=== PATIENT | male | born 1940 | race Caucasian/White ===

== ENCOUNTER 2016-12-06 14:59 | Emergency (ER) | payer MEDICARE, BC ==
[~2016-12-06 14:59] MED LIST: *UNABLE3; AMB10 PO; ASAB PO; ATIVAN; ATIVAN2 MG PO; ATV1 PEG; BAC; CITRUCEL500 MG PO; CITRUCELSF PO; CRESTOR20 MG PO; DUONEB INH; DURA25 TOP; FLONASE NAS; K250 PO; KDUR20 PO; KLOR-CON M2020 MEQ PO; L40 PEG; L40 PO; LEVAQUIN750 MG PO; MELATONIN5 M1 PEG; METPAKSF PEG; MIRALAXPKT PEG; NORV10 PEG; NORV10 PO; PROTONI1 PEG; PROZAC PEG; PROZAC PO; REG5 PEG; T PEG; THERGRANM PEG; VITAMIN D1000 UNI1 PEG; VITAMIN D1000 UNI1 PO; ZOFRAN4 PEG; ZOL50 PO
[2016-12-06 16:06] LABS: BASOPHILS 0.1 %; BASOPHILS ABSOLUTE 0.02 10/3/uL (0.0-0.16); EOSINOPHILS 0.1 %; EOSINOPHILS ABSOLUTE 0.01 10/3/uL (0.0-0.53); HEMOGLOBIN 9.1 g/dL (13.6-17.8); IMMATURE GRANULOCYTES 0.5 %; IMMATURE GRANULOCYTES ABSOLUTE 0.07 10/3/uL (0.0-0.11); LYMPHOCYTES 7.4 %; MEAN CORPUS HGB CONC 30.8 g/dL (32.0-36.0); MEAN PLATELET VOLUME 9.4 fL (9.2-13.0); MONOCYTES 1.5 %; NEUTROPHILS 90.4 %; NEUTROPHILS ABSOLUTE 12.17 10/3/uL (2.02-8.40); RBC DISTRIBUTION WIDTH 17.3 % (12.0-16.0)
[2016-12-06 16:08] LABS: ER CBC TAT 0 Hrs 13 Mins; HEMATOCRIT 29.5 % (40.0-51.0); MANUAL DIFF NO %; MEAN CORPUSCULAR VOLUME 74.5 fL (80-100); PLATELET COUNT 542 10/3/uL (150-400); RED CELL COUNT 3.96 10/6/uL (4.7-6.1); WHITE BLOOD CELLS 13.5 10/3/uL (4.5-10.5)
[2016-12-06 16:13] LABS: INTERNATIONAL NORMAL RATI 1.2 UNITS (-); PARTIAL THROMBO TIME 38.2 SEC (22.5-37.2); PROTIME (NOT ORD) 14.8 SEC (12.0-14.5)
[2016-12-06 16:23] LABS: A/G RATIO 0.3 (0.7-1.9); ALBUMIN 1.9 G/DL (3.5-5.0); ALKALINE PHOSPHATASE 239 U/L (45-117); BUN (BLOOD UREA NITROGEN) 18 MG/DL (6-23); CALCIUM, SERUM 9.1 MG/DL (8.5-10.4); CHLORIDE, SERUM 97 MMOL/L (96-112); CO2 (CARBON DIOXIDE) 30 MMOL/L (24-34); CREATININE 0.23 MG/DL (0.70-1.30); GFR AFRICAN AMERICAN 170 ML/MIN (>=60); GFR NON AFRICAN AMERICAN 147 ML/MIN (>=60); GLOBULIN 5.6 G/DL (2.5-4.1); GLUCOSE, SERUM 162 MG/DL (60-99); POTASSIUM, SERUM 4.5 MMOL/L (3.5-5.3); SGOT(AST) 33 U/L (5-40); SGPT(ALT) 65 U/L (5-65); SODIUM, SERUM 134 MMOL/L (135-148); TOTAL BILIRUBIN 0.3 MG/DL (0-1.2); TOTAL PROTEIN 7.5 G/DL (6.0-8.5); TROPONIN I <0.02 NG/ML (<0.05)
[2016-12-06 16:37] LABS: ANISOCYTOSIS 1+ (5-10/OIF) (0-5/OIF); PLATELET ESTIMATE SLT INC (ADEQUATE); POIKILOCYTOSIS 1+ (5-10/OIF) (0-5/OIF); TOXIC GRANULATION 1+
[2016-12-06 16:39] LABS: MICROCYTES 1+ (5-10/OIF) (0-5/OIF)
[2016-12-06 18:13] LABS: ASCORBIC ACID (UR NOT ORDER) 40 (NEG); BILIRUBIN, URINE NEGATIVE (NEG); ER URINALYSIS TAT 0 Hrs 24 Mins; KETONE, URINE NEGATIVE (NEG); LEUKOCYTE ESTERASE(NOT OR LARGE (NEG); NITRITE (URINE) NEG (NEG); WBC (NOT ORDERED) (RFLEX) > 182 (0-5)
[2016-12-07] MEDS ORDERED: CIP5 PEG (19:01)
[2016-12-07] MEDS ORDERED: ULTRAM50 PEG (19:02)
[2016-12-07] MEDS ORDERED: ATIVAN IV (19:03)
[2016-12-07] MEDS ORDERED: FENTANYL 12 MCG TOP (19:03)
[2016-12-07] MEDS ORDERED: DUONEB INH (19:04)
[2016-12-07] MEDS ORDERED: ATIVAN2 MG PO (19:04)
[2016-12-07] MEDS ORDERED: VOLTAREN1 % TOP (19:04)
== END 2016-12-06 20:08 | disposition home or self-care (01) ==
LOC: ER 14:59
PROVIDERS: Emergency Medicine
DX: F41.9 Anxiety disorder, unspecified (principal); N39.0 Urinary tract infection, site not specified; L89.159 Pressure ulcer of sacral region, unspecified stage; D64.9 Anemia, unspecified; Z88.8 Allergy status to other drugs, medicaments and biological substances; Z91.09 Other allergy status, other than to drugs and biological substances
CPT/HCPCS: 71010; 74176; 80053; 81001; 83690; 84484; 85025; 85610; 85730; 87077; 87086; 87186; 93005; 96374; 99285

== ENCOUNTER 2016-12-07 18:32 | Inpatient (IN) | payer MEDICARE, BC ==
--- NOTE | ~2016-12-07 | CN ---
Consultation Report [facility] [address] [place]. [address] NAME: LISANDRO ANGUIANO : 44 STATUS : ADM IN [facility]#: [id number] AGE: 76 ADM/REG DATE : 12/07/16 MR#: [id number] REPORT SERV DATE: 12/09/16 DICTATED BY: JUAN SINHA DATE: 12/09/16 REPORT STATUS : Draft TRANSCRIBED BY: MODL DATE: 12/09/16 GI CONSULTATION DATE OF CONSULTATION: 12/09/2016 REASON FOR CONSULTATION: Evaluation and management of the patient's small-bowel obstruction. HISTORY OF PRESENT ILLNESS: Mr. Anguiano is a 76-year-old male patient, who has been seen by us in the hospital and had PEG tube placed in 08/2016, who has a pertinent past medical history of acute on chronic respiratory failure, vent dependent and longstanding history of paraplegia secondary to fall in his 30s with involvement of T5 through T7, was admitted to the hospital on 12/07 from a senior living facility secondary to acute on chronic respiratory failure and difficulty breathing. He has a history of chronic abdominal distention, but had had no output in his ostomy bag. Therefore, a KUB was obtained on 12/08, which indicated a suspect for small-bowel obstruction distal to the jejunum. A CT scan on admission on 12/06 without contrast did not indicate any small-bowel obstruction. He had a repeat KUB today, which showed decreased amount of intestinal gas, compared to the previous exam. I have assessed Mr. Anguiano. He denies any abdominal pain. He has hypoactive bowel sounds in all four quadrants. He does have soft amount of stool in his ostomy bag. He denies any nausea. I have discussed the case with Dr. Armstrong and we will plan on placing on MiraLax twice a day as well as if needed, his PEG tube can be placed back to intermittent suction, but would recommend serial imaging as well as beginning his tube feedings back and continuing twice-a-day stool softeners. PAST MEDICAL HISTORY: Positive for recurrent UTIs with a history of suprapubic Phoenix catheter; chronic respiratory failure, vent dependent; ischemic colitis; peripheral vascular disease, he is status post left jahpz-rim-govf amputation with a history of osteomyelitis; coronary artery disease; pulmonary embolism; rheumatic fever; history of obstructive sleep apnea; spinal cord transection with paraplegia; history of pancreatitis with pancreatic pseudocyst; chronic pain syndrome; chronic sacral decubitus ulcer; candidemia and pneumonia; sepsis; dysphagia with PEG; anemia; debilitation; abdominal distention. SOCIAL HISTORY: and retired. Lives at a senior living facility. Past tobacco. No history of alcohol. ALLERGIES: POLYMYXIN B SULFATE, BACITRACIN, ADHESIVE TAPE, AND ANTIHISTAMINES. HOME MEDICATIONS: DuoNeb, Cipro, Voltaren, Ativan, Ultram, and a fentanyl patch. REVIEW OF SYSTEMS: Somewhat limited secondary to the patient having a trach. PERTINENT LABORATORY DATA: Sodium 139, potassium 3.6, BUN is 13, creatinine 0.23. White count 6.5, hemoglobin 7.5, hematocrit 24.3, platelet count 480. Consultation Report [address] [place]. [address] NAME: LISANDRO ANGUIANO : 42 STATUS : ADM IN [facility]#: [id number] AGE: 76 ADM/REG DATE : 12/07/16 MR#: [id number] REPORT SERV DATE: 12/09/16 DICTATED BY: JUAN SINHA DATE: 12/09/16 REPORT STATUS : Draft TRANSCRIBED BY: SELENE DATE: 12/09/16 PHYSICAL EXAMINATION: VITAL SIGNS: Temperature 97.6, pulse 96, respirations 24, and blood pressure 115/62. NEURO: Reveals an alert, chronically ill-appearing male, resting in bed. GENERAL: He is cooperative. He is in no obvious acute distress. He is awake. HEAD, EARS, EYES, NOSE, AND THROAT: Anicteric. Pupils equal, round, reactive to light and accommodation. Normocephalic and atraumatic. LUNGS: Coarse. Noted trach as well as ventilator dependent. CARDIOVASCULAR SYSTEM: Regular rate and rhythm. ABDOMEN: Obese with moderate distention. Hypoactive bowel sounds in all four quadrants. Ostomy on the left side with soft stool in the bag. No melena or hematochezia. EXTREMITIES: Noted left ifmyu-qxf-scfv amputation. ASSESSMENT: 1. Small-bowel obstruction, which has improved on abdominal films dated 12/09/2016. 2. Acute on chronic respiratory failure, ventilator dependent. 3. Urinary tract infection with history of recurrent urinary tract infection and suprapubic catheter. 4. Paraplegia. 5. Pancreatic pseudocyst. 6. Dysphagia, status post PEG. PLAN: 1. MiraLax twice a day via PEG. 2. Repeat imaging in the morning. 3. Resume tube feeding. We will follow. MALCOLM/SELENE [place] LUDIVINA Canela / [id number] CC: Jose Daniel Blancas M.D.
--- NOTE | ~2016-12-07 | OP ---
Record Of Operation [id number] [facility] [place]. [address] NAME: LISANDRO ANGUIANO : 44 STATUS : ADM IN [facility]#: [id number] AGE: 76 ADM/REG DATE : 12/07/16 MR#: [id number] REPORT SERV DATE: 12/11/16 DICTATED BY: ALEX KNIGHT DATE: 12/11/16 REPORT STATUS : Draft TRANSCRIBED BY: MODL DATE: 12/11/16 DATE OF PROCEDURE: 12/11/2016 PREOPERATIVE DIAGNOSES: 1. Multiple stage IV pressure ulcers. 2. Malnutrition. 3. Paralysis. 4. Acute on chronic respiratory failure with tracheostomy. 5. Urinary tract infection. 6. Anemia. POSTOPERATIVE DIAGNOSES: 1. Multiple stage IV pressure ulcers. 2. Malnutrition. 3. Paralysis. 4. Acute on chronic respiratory failure with tracheostomy. 5. Urinary tract infection. 6. Anemia. PROCEDURE: 1. Sharp excisional debridement of left buttock, stage IV pressure ulcer with debridement of skin, subcutaneous tissue, muscle, and bone (8.7 x 8.5 x 2.4 cm). 2. Sharp excisional debridement of sacral, stage IV pressure ulcer with debridement of skin, subcutaneous tissue, and muscle (3.5 x 1.8 x 2.9 cm). 3. Sharp excisional debridement of stage IV right buttock pressure ulcer with debridement of skin, subcutaneous tissue, and muscle (4.5 x 2.5 x 1.5 cm). 4. VAC pack placement. ANESTHESIA: General. SURGEON: Alex Knight M.D. EXCAVATOR BACKHOE OPERATOR: Vince. COMPLICATIONS: None. DRAINS: None. ESTIMATED BLOOD LOSS: 50 mL. OPERATIVE TECHNIQUE: The patient was brought to the operating room and placed on the table in supine position. He underwent general endotracheal anesthesia, was then placed on the operative table in prone position. A time-out was completed, and he was prepped and draped in sterile fashion. Using electrocautery, Bovie, and sharp curette; the left buttock, right buttock, and sacral ulcers were sharply debrided until all the necrotic tissue was removed. At the sacral ulcer, a small piece of Surgicel was left in the tunnel, tracking close to and Record Of Operation [id number] [facility] [place]. [address] NAME: LISANDRO ANGUIANO : 42 STATUS : ADM IN PAT#: [id number] AGE: 76 ADM/REG DATE : 12/07/16 MR#: [id number] REPORT SERV DATE: 12/11/16 DICTATED BY: ALEX KNIGHT DATE: 12/11/16 REPORT STATUS : Draft TRANSCRIBED BY: SELENE DATE: 12/11/16 parallel with the rectum, and was left in situ. At this point, there is no evidence of any bleeding or other visual abnormalities, and all the necrotic tissue was removed. One of the bleeding sites in the left buttock was controlled with two 3-0 Vicryl pop-off sutures. At this point, the debridement was used to excise skin, subcutaneous tissue, and muscle, and all 3 ulcers, and the addition of bone debridement in the left buttock ulcer. The above aforementioned measurements were obtained. The wounds were thoroughly irrigated and DuoDerm was placed on some of the skin tears around these ulcers. Next, the sponges were cut to size and all connected with tracking and extended out to the left hip. There were then placed to suction at 150 mmHg continuous negative pressure for all 3 wounds with a good seal without leak. There was no evidence of any complications. The patient was taken to the intensive care unit in critical condition. DAISY/SELENE Alex Knight M.D. / [id number] CC: Jose Daniel Blancas M.D.
--- NOTE | ~2016-12-07 | DS ---
Discharge Summary [address] [facility] [place]. [address] NAME: LISANDRO ANGUIANO : 44 STATUS : DIS IN PAT#: [id number] AGE: 76 ADM/REG DATE : 12/07/16 MR#: [id number] REPORT SERV DATE: 12/27/16 DICTATED BY: ROCÍO NGUYEN DATE: 12/26/16 REPORT STATUS : Draft TRANSCRIBED BY: SELENE DATE: 12/26/16 Data Collection from hospitalization DISCHARGE DIAGNOSES: 1. Chronic respiratory failure. 2. ESBL Escherichia coli and ESBL Proteus, sacral/buttock wound infection. 3. Sacral/bilateral buttock pressure ulcer stage IV, status post debridement. 4. Dysphagia with PEG tube. 5. Chronic pain syndrome. 6. Anxiety disorder. 7. Anemia secondary to chronic disease. 8. Chronic abdominal distention with recent partial small bowel obstruction. 9. History of colostomy and suprapubic catheter. 10.History of paraplegia. 11.History of pancreatitis. 12.History of peripheral vascular disease, status post srgef-vql-zvwu amputation. 13.Coronary disease. 14.History of pulmonary embolism. 15.Malnutrition. 16.Obstructive sleep apnea. CONSULTATIONS: 1. LUDIVINA Wharton. 2. Alex Junior M.D. PROCEDURES PERFORMED: Sharp excisional debridement of left buttock stage IV pressure ulcer with debridement of skin, subcutaneous tissue, muscle, and bone (8.7 x 8.5 x 2.4 cm); sharp excisional debridement of sacral stage IV pressure ulcer with debridement of skin, subcutaneous tissue, and muscle (3.5 x 1.8 x 2.9 cm); sharp excisional debridement of stage IV right buttock pressure ulcer with debridement of skin, subcutaneous tissue, and muscle (4.5 x 2.5 x 1.5 cm); VAC-PAC placement on 12/11/2016. DISCHARGE MEDICATIONS: Duragesic 12 mcg topically every 72 hours, ferrous sulfate 300 mg daily as instructed, Lasix 40 mg daily, heparin 5000 units subcutaneously every 8 hours, Merrem 500 mg IV every six hours for six days as instructed, Reglan 5 mg every 6 hours, MiraLAX powder one packet twice a day, sodium chloride as instructed, DuoNeb 3 mL via inhaler every four hours as instructed, Tylenol 650 mg as instructed orally or rectally, Iodosorb gel directed topically as needed, Voltaren gel one application topically daily as needed, Ativan 1 mg IV every four hours as needed, morphine 4 mg IV every four hours as needed, Zofran 4 mg IV every six hours as needed, MiraLAX powder one packet daily as needed, Ultram 50 mg every 8 hours as needed, sodium chloride as instructed, and Proventil 3 mL via inhaler every two hours as needed. CONDITION AT DISCHARGE: Stable. DISPOSITION: The patient was discharged to [facility] on tube feedings with activities as instructed. Discharge Summary [address] [place]. [address] NAME: LISANDRO ANGUIANO : 44 STATUS : DIS IN PAT#: [id number] AGE: 76 ADM/REG DATE : 12/07/16 MR#: [id number] REPORT SERV DATE: 12/27/16 DICTATED BY: ROCÍO NGUYEN DATE: 12/26/16 REPORT STATUS : Draft TRANSCRIBED BY: SELENE DATE: 12/26/16 HOSPITAL COURSE: This is a 76-year-old man who has a history of chronic respiratory failure, ventilator dependent, who had recently been transferred to home from [facility] where he was receiving treatment for his chronic condition. He was brought to the emergency room by his on Thursday prior to this admission where he was treated for urinary tract infection and was sent home. He returned back again to the emergency room with a complaint of difficulty breathing. At this time, the patient was not having any complaints of difficulty breathing. He was on the ventilator with limited verbal ability, but was able to answer simple questions. He was admitted to the hospital for further evaluation and treatment. Upon admission, vent support continued. The patient was currently on Levaquin. We would continue that via the PEG tube. White count had decreased to 13.3. We will plan to resume tube feedings if the patient's KUB was negative given his abdominal distention is chronic, but since there was no stool in the colostomy bag. The patient was at risk for constipation, and this would pose a risk for aspiration if he was constipated or had an issue with bowel obstruction. Tube feeding residual would be monitored once tube feedings were resumed. The head of his bed would be kept elevated greater than 30 degrees. A fentanyl patch was continued as well as morphine as needed. IV Ativan will be continued as needed. Hemoglobin A1c was going to be checked. We would likely add 2 packs of ProSource as recommended by the dietitian once the patient tolerated tube feedings. We will closely monitor the renal function. The following day, he was seen by Jatinder Canela regarding small bowel obstruction. The patient had hypoactive bowel sounds in all 4 quadrants. KUB had been obtained which indicated suspicion for small bowel obstruction distal to the jejunum. Repeat KUB showed decreased amount of intestinal gas compared to the previous exam. He denied any abdominal pain. MiraLAX will be given twice a day via the PEG tube. Repeat imaging would be performed the following morning. Tube feedings were going to be resumed. On , he was seen by Dr. Alex Junior regarding multiple stage IV pressure ulcers. The patient has a history of paraplegia after trauma and spinal cord transection. He had multiple plastic surgery flaps at the sacrum in the past, and over the past several weeks his ulcers had worsened. On exam, at this time, the patient has bilateral hip and buttock ulcers that were into the muscle and bone with necrotic wet gangrenous wall. After a discussion with the patient and his family, they agree to debridement and dressing care plan. They were aware that this was most likely palliative therapy due to his comorbidities and significant offloading and nutritional needs. They declined further observation with hospice which was also discussed. The patient was taken to the operating room by Dr. Junior where he underwent the above-mentioned procedure. He tolerated this well. There were no complications. On postop day #1, the patient was awake and alert. The VAC-PAC will be changed the following Thursday. He denies any shortness of breath, chest pain, nausea, or vomiting. Creatinine level was 0.20. His medical regimen was continued. Tube feedings were continued. He was found to have ESBL E. Coli/ESBL Proteus following the debridement of the sacral ulcers. He also had a urinary tract infection. On the , he remained hemodynamically stable. Dressing changes were continued. On 12/16/2016, he did have some nausea. His abdomen was soft. The colostomy was patent. MiraLAX was continued. Iron supplementation continued as well. Discharge planning was performed. A fentanyl patch remained in place for his chronic pain syndrome. Tube feeding rate was increased. On 12/18/2016, he continued to do well, he was tolerating daytime CPAP Discharge Summary [facility] [address] [facility] [address] NAME: LISANDRO ANGUIANO : 44 STATUS : DIS IN PAT#: [id number] AGE: 76 ADM/REG DATE : 12/07/16 MR#: [id number] REPORT SERV DATE: 12/27/16 DICTATED BY: ROCÍO NGUYEN DATE: 12/26/16 REPORT STATUS : Draft TRANSCRIBED BY: SELENE DATE: 12/26/16 trial. Discharge instructions were given. Due to his improved and stable condition, he was discharged to [facility] with the above-stated instructions. Information collected by: Megha Minor I submit the above information as my discharge summary. CHITRA/SELENE Rocío Nguyen M.D. / [id number] CC: Nella Del Castillo M.D. [facility] José MiguelLUDIVINA Chi
--- NOTE | ~2016-12-07 | HP ---
History And Physical [address] [place]. [address] NAME: LISANDRO ANGUIANO : 44 STATUS : ADM [facility]#: [id number] AGE: 76 ADM/REG DATE : 12/07/16 MR#: [id number] REPORT SERV DATE: 12/08/16 DICTATED BY: ROCÍO NGUYEN DATE: 12/08/16 REPORT STATUS : Draft TRANSCRIBED BY: MODIndira DATE: 12/08/16 DATE OF ADMISSION: 12/07/2016 CHIEF COMPLAINT: Difficulty breathing. HISTORY OF PRESENT ILLNESS: The patient is a 76-year-old male with history of chronic respiratory failure, vent dependent, who was recently transferred to home from [facility] where he was receiving treatment for his chronic condition. The patient was brought to the ER by his on Thursday where he was treated for UTI and was sent home and he returned back again to the ER yesterday with complaint of difficulty breathing. At this time, the patient is not having any complaint of difficulty breathing. The patient is on the vent with limited verbal ability but able to answer simple question, most information obtained from reviewing medical records in [facility] electronic medical record system as well as chart and nursing staff. ALLERGIES: ANTIHISTAMINE CAUSES THE PATIENT NOT TO SLEEP; BACITRACIN, POLYMYXIN B AND ADHESIVE CAUSES RASH. CODE STATUS: Full. MEDICATIONS: Currently include fentanyl patch 12 mcg q. 72 hours; Levaquin 750 mg p.o. daily; DuoNeb 3 mL inhalation q.4 hours; Voltaren gel 1% daily p.r.n.; Ativan IV p.r.n.; morphine IV p.r.n.; Zofran IV p.r.n.; and tramadol via PEG q.8 hours p.r.n. PAST MEDICAL HISTORY: 1. Positive for history of chronic respiratory failure, vent dependent. 2. History of recurrent UTI with suprapubic Phoenix. 3. History of ischemic colitis. 4. History of peripheral vascular disease, status post left uhfpv-byt-vxqt amputation with history of osteomyelitis. 5. Coronary artery disease. 6. Pulmonary embolism. 7. Rheumatic fever. 8. History of obstructive sleep apnea. 9. Status post spinal cord transection with paraplegia in his 30s. 10.History of pancreatitis with a pancreatic mass. 11.Chronic pain syndrome. 12.History of chronic sacral decubitus ulcer. 13.History of candidemia and pneumonia with history of sepsis. 14.Dysphagia with PEG tube. 15.Anemia due to chronic disease. 16.Debilitation. 17.History of abdominal distention. PAST SURGICAL HISTORY: 1. To include suprapubic Phoenix placement, trach and PEG placement. History And Physical [address] [address] NAME: LISANDRO ANGUIANO : 44 STATUS : ADM [facility]#: [id number] AGE: 76 ADM/REG DATE : 12/07/16 MR#: [id number] REPORT SERV DATE: 12/08/16 DICTATED BY: ROCÍO NGUYEN DATE: 12/08/16 REPORT STATUS : Draft TRANSCRIBED BY: SELENE DATE: 12/08/16 2. Left badds-txq-hupi amputation, debridement of wounds, diverting colostomy, tonsillectomy, hernia repair, stenting for peripheral vascular disease. SOCIAL HISTORY: The patient was a recent resident until last of Health Care at [facility]. He is and has a son who helps with his care. He has a history of smoking many years ago but had stopped about greater than 25 years ago. No history of alcohol or drug abuse. The patient is retired and his church is [employer]. REVIEW OF SYSTEMS: The patient reports he uses prescription glasses. He uses upper and lower dentures but his lower dentures is not available. He denies any complaint of difficulty breathing, chest pain, nausea, vomiting, or abdominal pain at this time. Otherwise review of systems is limited secondary to the patient being on a vent and limited verbal abilities. PHYSICAL EXAMINATION: VITAL SIGNS: Temperature of 97.9, pulse of 89, respiratory rate on a vent at 17, blood pressure of 106/61, and FiO2 of 45% with sat O2 at 100%. The patient currently on SIMV ventilator mode with tidal volume of 500, a PIP of 30, FiO2 of 45, and PEEP of 5. Rate of 12 and total rate of 17. LAB DATA: ABG on admission on 12/07/2016 with pH of 7.47, pCO2 of 41, PO2 of 80, HCO2 is 29.3, an IO2 of 44.0. A BNP was 700.3, troponin less than 0.02. Sodium on 12/07/2016 was 136, potassium 4.2, chloride 96, CO2 of 32, BUN 12, and creatinine 0.34. GFR level of 125. Glucose of 140. WBC of 15.0, hemoglobin 9.0, hematocrit 29.2, platelet of 519. AST of 30, bilirubin of 0.4, total protein of 7.2, ALT 55, and albumin of 1.9. Lab work on 12/08/2016 with sodium 136, potassium 3.7, chloride 96, CO2 of 31, BUN 12, creatinine 0.30, GFR of 132, and glucose of 103. WBC 13.3, hemoglobin 8.6, hematocrit 27.2, and platelets of 500. X-ray on 12/07/2016 showed new lingular infiltrate, persistent bilateral pleural effusion. PHYSICAL EXAMINATION: GENERAL: The patient is alert to self. HEENT: Mucosa moist. Eyes PERRL. Bilateral nonicteric. Uses glasses. NECK: Trach secured. No drainage or bleeding noted. CHEST: No chest deformity noted. LUNGS: Noted upper rhonchi on the right upper and then on the left upper lobes, expansion symmetrical. CV: No murmurs noted. Slight irregularities noted with telemetry showing heart rate of 102 with sinus arrhythmia. ABDOMEN: Noted abdominal distention but soft to palpation. No pain with palpation. PEG tube secured in the left upper quadrant, noted suprapubic catheter intact in the mid lower quadrant. Colostomy in the left lower quadrant noted but no stool in bag. EXTREMITIES: Noted bilateral upper extremity with good range of motion with strength at the right upper extremity 3/5 and left lower extremity 2/5 noted bilateral hands with arthritic changes. Bilateral upper extremity no edema. Noted multiple small old ecchymosis in upper extremity noted. The patient is paraplegic with left prkxt-ujy-iees amputation with stump History And Physical [address] [address] NAME: LISANDRO ANGUIANO : 44 STATUS : ADM [facility]#: [id number] AGE: 76 ADM/REG DATE : 12/07/16 MR#: [id number] REPORT SERV DATE: 12/08/16 DICTATED BY: ROCÍO NGUYEN DATE: 12/08/16 REPORT STATUS : Draft TRANSCRIBED BY: SELENE DATE: 12/08/16 intact. Right lower extremity 2+ edema. Right lower extremity elevated with pillow. Right lower arm with peripheral IV intact without redness. ASSESSMENT: 1. Acute on chronic respiratory failure/vent dependent. 2. UTI with history of recurrent UTI with suprapubic catheter. 3. Dysphagia with PEG. DICTATED BY: Anju Osorio NP CLP/MODL Rocío Nguyen M.D. / [id number] CC: Jose Daniel Blancas M.D.
--- NOTE | ~2016-12-07 | HP ---
History And Physical [place] [id number] [facility] [place]. [address] NAME: LISANDRO ANGUIANO : 44 STATUS : ADM IN [facility]#: [id number] AGE: 76 ADM/REG DATE : 12/07/16 MR#: [id number] REPORT SERV DATE: 12/08/16 DICTATED BY: ROCÍO NGUYEN DATE: 12/08/16 REPORT STATUS : Draft TRANSCRIBED BY: MODL DATE: 12/08/16 DATE OF ADMISSION: 12/07/2016 ADDENDUM ASSESSMENT: 1. Acute on chronic respiratory failure, vent dependent. 2. UTI with history of recurrent UTI with suprapubic catheter. 3. Dysphagia with PEG tube. 4. Chronic pain syndrome. 5. Chronic abdominal distention. 6. History of paraplegia with history of status post spinal cord transection in his 30s. 7. Anxiety disorder. 8. Anemia secondary to chronic disease. 9. Chronic sacral pressure ulcer, status post diverting colostomy. 10.History of pancreatitis with history of pancreatic mass. 11.History of peripheral vascular disease, status post left tuuwk-ved-mzbf amputation. 12.Coronary disease. 13.History of pulmonary embolism. 14.Malnutrition undetermined. PLAN: We will continue vent support. The patient currently on SIMV with FiO2 of 45%. Set rate of 12, PIP of 30, and PEEP on 5. Continue to monitor sat O2. Continue breathing treatment. The patient's BNP on admission was 71.3. This is the patient's likely baseline. His admission ABG is not too significant. We will plan to likely arrange the patient to go back to [facility] and we will discuss with the discharge plan like this could be that she was not able to manage or was not able to care for the patient. With this complexity of care at home, the patient is at risk for further hypoxia. We will follow up on imaging study. Patient currently on Levaquin. This will be a good coverage if he has any early pneumonia brewing. The patient currently on treatment for Levaquin. We will continue that via PEG. Unable to see if there was a culture done since the patient was discharged home but we will follow up on culture. The patient is afebrile. His white count has decreased to 13.3. The patient is at risk for sepsis. Patient with PEG tube, does not have tube feeding at this time but was seen by dietitian with recommendation of Pivot tube feeding with a max rate of 70 mL. We will plan to resume tube feeding if the patient's KUB is negative given his abdominal distention is chronic but since there is no stool in his colostomy bag, the patient is at risk for constipation and this will pose the patient at risk for aspiration if he is constipated or has issue with bowel obstruction. We will monitor tube feeding residual once the patient's tube feeding is resumed. The patient is at risk for aspiration. We will keep head of bed greater than 30 degrees. We will continue fentanyl patch at this time for his history of chronic pain syndrome and History And Physical [address] [address] NAME: LISANDRO ANGUIANO : 44 STATUS : ADM IN [facility]#: [id number] AGE: 76 ADM/REG DATE : 12/07/16 MR#: [id number] REPORT SERV DATE: 12/08/16 DICTATED BY: ROCÍO NGUYEN DATE: 12/08/16 REPORT STATUS : Draft TRANSCRIBED BY: SELENE DATE: 12/08/16 p.r.n. morphine but we will try to see what the patient had used in the past for short- acting breakthrough pain via PEG. We will monitor for signs and symptoms of anxiety. Continue p.r.n. Ativan IV. The patient is at risk for decannulation. We will closely monitor H and H. The patient's H and H is slightly decreased. If needed, we will need to start the patient on iron supplement. The patient is at risk for further hypoxia with acute coronary syndrome with low H and H. We will refer the patient to Wound Care for his chronic sacral wound, question if this is worsening in regard to comparison to his discharge from [facility]. The patient is at risk for osteomyelitis. We will obtain hemoglobin A1c with a.m. laboratory study. We will likely add 2 packs of Pro Source as recommended by dietitian once the patient tolerates tube feeding. The patient is at risk of poor wound healing. We will closely monitor renal function. The patient's admission renal function is stable. The patient is at risk for acute kidney injury. We will discuss with case management and plan of care. We will hope likely to transfer the patient back to [facility] in case if is unable to care for patient at home. DICTATED BY: Anju Osorio NP CLP/MODL Rocío Nguyen M.D. / [id number] CC: Jose Daniel Blancas M.D.
--- NOTE | ~2016-12-07 | CN ---
Consultation Report [facility] [address] [facility] [place]. [address] NAME: LISANDRO ANGUIANO : 44 STATUS : ADM IN [facility]#: [id number] AGE: 76 ADM/REG DATE : 12/07/16 MR#: [id number] REPORT SERV DATE: 12/11/16 DICTATED BY: ALEX KNIGHT DATE: 12/11/16 REPORT STATUS : Draft TRANSCRIBED BY: MODL DATE: 12/11/16 DATE OF CONSULTATION: 12/11/2016 REASON FOR CONSULTATION: Multiple stage IV pressure ulcers. HISTORY OF PRESENT ILLNESS: This 76-year-old gentleman was admitted to the hospital with acute on chronic respiratory failure, recurrent chronic urinary tract infection, dysphagia, and worsening stage IV pressure ulcers. He has a significant past medical history including chronic pain, paraplegia after trauma, and spinal cord transection, anxiety, chronic anemia, history of pulmonary embolism, and malnutrition. He has had multiple plastic surgery flaps of the sacrum in the past and over the past several weeks, his ulcers have worsened. On exam today, the patient has bilateral hip and buttock ulcers that are into the muscle and bone with necrotic wet gangrenous slough. He has been followed for a bowel obstruction and was believed to be ileus or full motility secondary to his comorbidities. I have discussed the risks, benefits, and alternatives of debridement and possible VAC-PAC placement with the family and they wish to proceed. PAST MEDICAL HISTORY: As above with ventilator dependence, history of left tbftg-cqa-kxwn amputation for osteomyelitis, obstructive sleep apnea, and pancreatitis with pseudocyst. SOCIAL HISTORY: The patient is . He is retired. He lives in a long term facility. He smoked in the past. No recent alcohol, tobacco, or illicit drug usage. ALLERGIES: MULTIPLE. PLEASE SEE HOSPITAL CHART. REPORTED POLYMYXIN B, BACITRACIN, TAPE, AND ANTIHISTAMINES. MEDICATIONS: Please see hospital chart. REVIEW OF SYSTEMS: No headache, blurred vision, dizziness, chest pain, or productive cough. The patient has no feeling of his lower extremities. PHYSICAL EXAMINATION: GENERAL: A cachectic male with tracheostomy. NECK: Supple. No adenopathy. Tracheostomy in place. CARDIOVASCULAR: Regular rate and rhythm. RESPIRATORY: The patient has coarse rhonchi bilaterally and was on the ventilator. ABDOMEN: Obese, moderate distention. The patient has a PEG with tube feeds and an ostomy in the left lower quadrant with stool. EXTREMITIES: Left yjmjs-urp-nnki amputation. The patient has bilateral foul-smelling necrotic hip and buttock stage IV pressure ulcers with palpation of bone on the left buttock ulcer. ASSESSMENT: 1. Multiple stage IV pressure ulcers of the hip and buttock with necrotic foul-smelling Consultation Report [place] [address] [place]. [address] NAME: LISANDRO ANGUIANO : 44 STATUS : ADM IN [facility]#: [id number] AGE: 76 ADM/REG DATE : 12/07/16 MR#: [id number] REPORT SERV DATE: 12/11/16 DICTATED BY: ALEX KNIGHT DATE: 12/11/16 REPORT STATUS : Draft TRANSCRIBED BY: SELENE DATE: 12/11/16 [place]. 2. Multiple medical problems as above. PLAN: After discussion with the patient and the family, they agreed to debridement and dressing care plan. They are aware that this is most likely palliative therapy due to his comorbidities and significant offloading and nutritional needs. They declined further observation with hospice, which was also discussed. DAISY/SELENE Alex Knight M.D. / [id number] CC: Jose Daniel Blancas M.D. [facility]
[2016-12-07 18:53] LABS: ALLENS TEST Pos; BE (BASE EXCESS) 5.2 MEQ/L (0 +/- 2.5); CARBOXYHEMOGLOBIN 1.2 % (0-3); HCO3 (ACTUAL BICARBONATE) 29.3 MEQ/L (23-27); HEMOBLOGIN CONTENT 10.4 G/DL (14-18); INSTRUMENT SERIAL # 8087; METHEMOGLOBIN 0.1 % (0-3); MODE SIMV; OPERATOR ID 35091; PCO2 (CO2 TENSION) 41 MMHG (35-45); PO2 (O2 TENSION) 80 MMHG (79-93); PRESSURE SUPPORT 20 cm.H2O; SAMPLE Arterial; TIDAL VOLUME 500 ML; pH 7.47 (7.37-7.43)
[2016-12-07] MEDS ORDERED: CIP5 PEG (19:01)
[2016-12-07] MEDS ORDERED: ULTRAM50 PEG (19:02)
[2016-12-07] MEDS ORDERED: ATIVAN IV (19:03)
[2016-12-07] MEDS ORDERED: FENTANYL 12 MCG TOP (19:03)
[2016-12-07] MEDS ORDERED: VOLTAREN1 % TOP (19:04)
[2016-12-07] MEDS ORDERED: ATIVAN2 MG PO (19:04)
[2016-12-07] MEDS ORDERED: DUONEB INH (19:04)
[2016-12-07 19:29] LABS: BASOPHILS 0.1 %; BASOPHILS ABSOLUTE 0.01 10/3/uL (0.0-0.16); EOSINOPHILS 0.3 %; EOSINOPHILS ABSOLUTE 0.05 10/3/uL (0.0-0.53); ER CBC TAT 0 Hrs 05 Mins; HEMATOCRIT 29.2 % (40.0-51.0); IMMATURE GRANULOCYTES 0.5 %; LYMPHOCYTES ABSOLUTE 0.75 10/3/uL (0.67-4.30); MEAN CORPUS HGB CONC 30.8 g/dL (32.0-36.0); MEAN CORPUSCULAR HEMOGLOB 23.1 pg (26.0-34.0); MEAN CORPUSCULAR VOLUME 74.9 fL (80-100); MEAN PLATELET VOLUME 8.7 fL (9.2-13.0); MONOCYTES 4.7 %; NEUTROPHILS 89.4 %; NEUTROPHILS ABSOLUTE 13.36 10/3/uL (2.02-8.40); PLATELET COUNT 519 10/3/uL (150-400); RBC DISTRIBUTION WIDTH 17.3 % (12.0-16.0)
[2016-12-07 19:31] LABS: IMMATURE GRANULOCYTES ABSOLUTE 0.08 10/3/uL (0.0-0.11); MANUAL DIFF NO %
[2016-12-07 19:47] LABS: A/G RATIO 0.4 (0.7-1.9); ALBUMIN 1.9 G/DL (3.5-5.0); ALKALINE PHOSPHATASE 236 U/L (45-117); BUN (BLOOD UREA NITROGEN) 12 MG/DL (6-23); CALCIUM, SERUM 8.8 MG/DL (8.5-10.4); CHLORIDE, SERUM 96 MMOL/L (96-112); CO2 (CARBON DIOXIDE) 32 MMOL/L (24-34); CREATININE 0.34 MG/DL (0.70-1.30); GFR AFRICAN AMERICAN 145 ML/MIN (>=60); GFR NON AFRICAN AMERICAN 125 ML/MIN (>=60); GLOBULIN 5.3 G/DL (2.5-4.1); GLUCOSE, SERUM 140 MG/DL (60-99); POTASSIUM, SERUM 4.2 MMOL/L (3.5-5.3); SGOT(AST) 30 U/L (5-40); SGPT(ALT) 55 U/L (5-65); SODIUM, SERUM 136 MMOL/L (135-148); TOTAL BILIRUBIN 0.4 MG/DL (0-1.2); TOTAL PROTEIN 7.2 G/DL (6.0-8.5); TROPONIN I <0.02 NG/ML (<0.05)
[2016-12-07 20:04] LABS: ER DIFF TAT 0 Hrs 40 Mins; IMMATURE GRANS ABSOLUTE (CALC) 0.15 10/3/uL (0.0-0.11); LYMPHOCYTES 2 %; METAMYELOCYTES 1 %; MONOCYTES 2 %; NEUTROPHILS ABSOLUTE (CALC) 14.25 10/3/uL (2.02-8.40); PLATELET ESTIMATE SLT INC (ADEQUATE); SEGMENTED NEUTROPHIL (0) 95 %; TOTAL NUCLEATED CELLS 100
[2016-12-07 20:05] LABS: ANISOCYTOSIS 1+ (5-10/OIF) (0-5/OIF); MICROCYTES 1+ (5-10/OIF) (0-5/OIF); POIKILOCYTOSIS 1+ (5-10/OIF) (0-5/OIF)
[2016-12-08 04:26] LABS: BASOPHILS 0.1 %; BASOPHILS ABSOLUTE 0.01 10/3/uL (0.0-0.16); EOSINOPHILS 0.2 %; EOSINOPHILS ABSOLUTE 0.03 10/3/uL (0.0-0.53); HEMATOCRIT 27.2 % (40.0-51.0); HEMOGLOBIN 8.6 g/dL (13.6-17.8); IMMATURE GRANULOCYTES 0.5 %; IMMATURE GRANULOCYTES ABSOLUTE 0.07 10/3/uL (0.0-0.11); LYMPHOCYTES 6.2 %; LYMPHOCYTES ABSOLUTE 0.82 10/3/uL (0.67-4.30); MEAN CORPUS HGB CONC 31.6 g/dL (32.0-36.0); MEAN CORPUSCULAR HEMOGLOB 23.4 pg (26.0-34.0); MEAN CORPUSCULAR VOLUME 74.1 fL (80-100); MONOCYTES 5.9 %; MONOCYTES ABSOLUTE 0.78 10/3/uL (0.21-1.20); NEUTROPHILS 87.1 %; NEUTROPHILS ABSOLUTE 11.58 10/3/uL (2.02-8.40); PLATELET COUNT 500 10/3/uL (150-400); RBC DISTRIBUTION WIDTH 17.3 % (12.0-16.0); RED CELL COUNT 3.67 10/6/uL (4.7-6.1); WHITE BLOOD CELLS 13.3 10/3/uL (4.5-10.5)
[2016-12-08 04:27] LABS: MANUAL DIFF NO %
[2016-12-08 04:45] LABS: BUN (BLOOD UREA NITROGEN) 12 MG/DL (6-23); CALCIUM, SERUM 8.8 MG/DL (8.5-10.4); CHLORIDE, SERUM 96 MMOL/L (96-112); CO2 (CARBON DIOXIDE) 31 MMOL/L (24-34); GFR AFRICAN AMERICAN 153 ML/MIN (>=60); GFR NON AFRICAN AMERICAN 132 ML/MIN (>=60); GLUCOSE, SERUM 103 MG/DL (60-99); POTASSIUM, SERUM 3.7 MMOL/L (3.5-5.3); SODIUM, SERUM 136 MMOL/L (135-148)
[2016-12-09 03:56] LABS: BASOPHILS 0.2 %; BASOPHILS ABSOLUTE 0.01 10/3/uL (0.0-0.16); EOSINOPHILS 0.8 %; EOSINOPHILS ABSOLUTE 0.05 10/3/uL (0.0-0.53); HEMATOCRIT 24.3 % (40.0-51.0); HEMOGLOBIN 7.5 g/dL (13.6-17.8); IMMATURE GRANULOCYTES 0.8 %; IMMATURE GRANULOCYTES ABSOLUTE 0.05 10/3/uL (0.0-0.11); LYMPHOCYTES 5.7 %; LYMPHOCYTES ABSOLUTE 0.37 10/3/uL (0.67-4.30); MANUAL DIFF NO %; MEAN CORPUS HGB CONC 30.9 g/dL (32.0-36.0); MEAN CORPUSCULAR HEMOGLOB 23.1 pg (26.0-34.0); MEAN PLATELET VOLUME 8.9 fL (9.2-13.0); MONOCYTES 10.5 %; MONOCYTES ABSOLUTE 0.68 10/3/uL (0.21-1.20); NEUTROPHILS ABSOLUTE 5.32 10/3/uL (2.02-8.40); PLATELET COUNT 480 10/3/uL (150-400); RBC DISTRIBUTION WIDTH 17.5 % (12.0-16.0); RED CELL COUNT 3.24 10/6/uL (4.7-6.1); WHITE BLOOD CELLS 6.5 10/3/uL (4.5-10.5)
[2016-12-09 04:11] LABS: BUN (BLOOD UREA NITROGEN) 13 MG/DL (6-23); CALCIUM, SERUM 8.5 MG/DL (8.5-10.4); CHLORIDE, SERUM 101 MMOL/L (96-112); CO2 (CARBON DIOXIDE) 31 MMOL/L (24-34); CREATININE 0.23 MG/DL (0.70-1.30); GFR AFRICAN AMERICAN 170 ML/MIN (>=60); GFR NON AFRICAN AMERICAN 147 ML/MIN (>=60); GLUCOSE, SERUM 91 MG/DL (60-99); POTASSIUM, SERUM 3.6 MMOL/L (3.5-5.3); PREALBUMIN 4.6 MG/DL (17.0-43.0); SODIUM, SERUM 139 MMOL/L (135-148)
[2016-12-10 04:17] LABS: BASOPHILS 0.2 %; BASOPHILS ABSOLUTE 0.01 10/3/uL (0.0-0.16); EOSINOPHILS 1.3 %; EOSINOPHILS ABSOLUTE 0.08 10/3/uL (0.0-0.53); HEMOGLOBIN 7.7 g/dL (13.6-17.8); IMMATURE GRANULOCYTES 0.5 %; IMMATURE GRANULOCYTES ABSOLUTE 0.03 10/3/uL (0.0-0.11); LYMPHOCYTES 5.3 %; LYMPHOCYTES ABSOLUTE 0.33 10/3/uL (0.67-4.30); MEAN CORPUS HGB CONC 30.8 g/dL (32.0-36.0); MEAN CORPUSCULAR HEMOGLOB 23.1 pg (26.0-34.0); MEAN CORPUSCULAR VOLUME 74.9 fL (80-100); MEAN PLATELET VOLUME 9.2 fL (9.2-13.0); MONOCYTES 11.1 %; MONOCYTES ABSOLUTE 0.69 10/3/uL (0.21-1.20); NEUTROPHILS 81.6 %; NEUTROPHILS ABSOLUTE 5.07 10/3/uL (2.02-8.40); PLATELET COUNT 492 10/3/uL (150-400); RBC DISTRIBUTION WIDTH 17.7 % (12.0-16.0); RED CELL COUNT 3.34 10/6/uL (4.7-6.1); WHITE BLOOD CELLS 6.2 10/3/uL (4.5-10.5)
[2016-12-10 04:21] LABS: MANUAL DIFF NO %
[2016-12-10 04:32] LABS: CALCIUM, SERUM 8.7 MG/DL (8.5-10.4); CHLORIDE, SERUM 97 MMOL/L (96-112); CO2 (CARBON DIOXIDE) 31 MMOL/L (24-34); CREATININE 0.25 MG/DL (0.70-1.30); GFR AFRICAN AMERICAN 165 ML/MIN (>=60); GFR NON AFRICAN AMERICAN 142 ML/MIN (>=60); GLUCOSE, SERUM 82 MG/DL (60-99); POTASSIUM, SERUM 3.6 MMOL/L (3.5-5.3); SODIUM, SERUM 137 MMOL/L (135-148)
[2016-12-10 04:37] LABS: BUN (BLOOD UREA NITROGEN) 9 MG/DL (6-23)
[2016-12-10 04:39] LABS: ANISOCYTOSIS 1+ (5-10/OIF) (0-5/OIF); HYPOCHROMIA 1+ (3-10/OIF) (0-2/OIF); MICROCYTES 1+ (5-10/OIF) (0-5/OIF); PLATELET ESTIMATE SLT INC (ADEQUATE)
[2016-12-11 04:18] LABS: BASOPHILS 0.3 %; BASOPHILS ABSOLUTE 0.02 10/3/uL (0.0-0.16); EOSINOPHILS 0.7 %; EOSINOPHILS ABSOLUTE 0.05 10/3/uL (0.0-0.53); HEMATOCRIT 25.7 % (40.0-51.0); HEMOGLOBIN 7.9 g/dL (13.6-17.8); IMMATURE GRANULOCYTES 0.6 %; IMMATURE GRANULOCYTES ABSOLUTE 0.04 10/3/uL (0.0-0.11); LYMPHOCYTES 4.9 %; LYMPHOCYTES ABSOLUTE 0.34 10/3/uL (0.67-4.30); MEAN CORPUS HGB CONC 30.7 g/dL (32.0-36.0); MEAN CORPUSCULAR HEMOGLOB 22.6 pg (26.0-34.0); MEAN CORPUSCULAR VOLUME 73.4 fL (80-100); MEAN PLATELET VOLUME 9.3 fL (9.2-13.0); MONOCYTES 10.5 %; MONOCYTES ABSOLUTE 0.73 10/3/uL (0.21-1.20); NEUTROPHILS ABSOLUTE 5.77 10/3/uL (2.02-8.40); PLATELET COUNT 546 10/3/uL (150-400); RBC DISTRIBUTION WIDTH 17.8 % (12.0-16.0)
[2016-12-11 04:21] LABS: MANUAL DIFF NO %
[2016-12-11 04:44] LABS: BUN (BLOOD UREA NITROGEN) 7 MG/DL (6-23); CALCIUM, SERUM 8.3 MG/DL (8.5-10.4); CHLORIDE, SERUM 99 MMOL/L (96-112); CO2 (CARBON DIOXIDE) 27 MMOL/L (24-34); GFR AFRICAN AMERICAN 180 ML/MIN (>=60); GFR NON AFRICAN AMERICAN 156 ML/MIN (>=60); POTASSIUM, SERUM 3.5 MMOL/L (3.5-5.3); SODIUM, SERUM 135 MMOL/L (135-148)
[2016-12-11 04:46] LABS: GLUCOSE, SERUM 113 MG/DL (60-99)
[2016-12-11 05:17] LABS: ANISOCYTOSIS 1+ (5-10/OIF) (0-5/OIF); GIANT PLATELET OCC; PLATELET ESTIMATE INC (ADEQUATE)
[2016-12-11 13:13] LABS: BASOPHILS 0.2 %; BASOPHILS ABSOLUTE 0.01 10/3/uL (0.0-0.16); EOSINOPHILS 0.8 %; EOSINOPHILS ABSOLUTE 0.05 10/3/uL (0.0-0.53); HEMATOCRIT 27.1 % (40.0-51.0); HEMOGLOBIN 8.2 g/dL (13.6-17.8); IMMATURE GRANULOCYTES 0.6 %; IMMATURE GRANULOCYTES ABSOLUTE 0.04 10/3/uL (0.0-0.11); LYMPHOCYTES 9.3 %; LYMPHOCYTES ABSOLUTE 0.61 10/3/uL (0.67-4.30); MEAN CORPUS HGB CONC 30.3 g/dL (32.0-36.0); MEAN CORPUSCULAR HEMOGLOB 22.3 pg (26.0-34.0); MEAN CORPUSCULAR VOLUME 73.8 fL (80-100); MEAN PLATELET VOLUME 8.9 fL (9.2-13.0); MONOCYTES 6.3 %; MONOCYTES ABSOLUTE 0.41 10/3/uL (0.21-1.20); NEUTROPHILS 82.8 %; NEUTROPHILS ABSOLUTE 5.41 10/3/uL (2.02-8.40); PLATELET COUNT 497 10/3/uL (150-400); RBC DISTRIBUTION WIDTH 17.8 % (12.0-16.0); RED CELL COUNT 3.67 10/6/uL (4.7-6.1); WHITE BLOOD CELLS 6.5 10/3/uL (4.5-10.5)
[2016-12-11 13:16] LABS: MANUAL DIFF NO %
[2016-12-11 13:45] LABS: ANISOCYTOSIS 1+ (5-10/OIF) (0-5/OIF); MICROCYTES 1+ (5-10/OIF) (0-5/OIF); PLATELET ESTIMATE SLT INC (ADEQUATE)
[2016-12-11 13:46] LABS: POLYCHROMASIA 1+ (2-5/OIF) (0-1/OIF)
[2016-12-13 05:09] LABS: BASOPHILS 0.3 %; BASOPHILS ABSOLUTE 0.02 10/3/uL (0.0-0.16); EOSINOPHILS 2.1 %; EOSINOPHILS ABSOLUTE 0.13 10/3/uL (0.0-0.53); HEMATOCRIT 25.4 % (40.0-51.0); HEMOGLOBIN 7.8 g/dL (13.6-17.8); IMMATURE GRANULOCYTES 0.8 %; IMMATURE GRANULOCYTES ABSOLUTE 0.05 10/3/uL (0.0-0.11); LYMPHOCYTES 9.2 %; LYMPHOCYTES ABSOLUTE 0.57 10/3/uL (0.67-4.30); MEAN CORPUS HGB CONC 30.7 g/dL (32.0-36.0); MEAN CORPUSCULAR HEMOGLOB 22.7 pg (26.0-34.0); MEAN CORPUSCULAR VOLUME 74.1 fL (80-100); MEAN PLATELET VOLUME 8.9 fL (9.2-13.0); MONOCYTES 11.1 %; MONOCYTES ABSOLUTE 0.69 10/3/uL (0.21-1.20); NEUTROPHILS 76.5 %; NEUTROPHILS ABSOLUTE 4.76 10/3/uL (2.02-8.40); PLATELET COUNT 483 10/3/uL (150-400); RED CELL COUNT 3.43 10/6/uL (4.7-6.1); WHITE BLOOD CELLS 6.2 10/3/uL (4.5-10.5)
[2016-12-13 05:11] LABS: CALCIUM, SERUM 8.1 MG/DL (8.5-10.4); CHLORIDE, SERUM 103 MMOL/L (96-112); CO2 (CARBON DIOXIDE) 27 MMOL/L (24-34); CREATININE 0.19 MG/DL (0.70-1.30); GFR AFRICAN AMERICAN 184 ML/MIN (>=60); GFR NON AFRICAN AMERICAN 159 ML/MIN (>=60); GLUCOSE, SERUM 110 MG/DL (60-99); POTASSIUM, SERUM 3.5 MMOL/L (3.5-5.3); SODIUM, SERUM 140 MMOL/L (135-148)
[2016-12-13 05:12] LABS: BUN (BLOOD UREA NITROGEN) 11 MG/DL (6-23)
[2016-12-13 05:28] LABS: MANUAL DIFF NO %
[2016-12-13 06:23] LABS: ANISOCYTOSIS 1+ (5-10/OIF) (0-5/OIF); PLATELET ESTIMATE SLT INC (ADEQUATE)
[2016-12-13 06:24] LABS: MICROCYTES 1+ (5-10/OIF) (0-5/OIF)
[2016-12-14 06:07] LABS: BASOPHILS 0.2 %; BASOPHILS ABSOLUTE 0.01 10/3/uL (0.0-0.16); EOSINOPHILS 1.8 %; EOSINOPHILS ABSOLUTE 0.12 10/3/uL (0.0-0.53); HEMATOCRIT 24.5 % (40.0-51.0); HEMOGLOBIN 7.6 g/dL (13.6-17.8); IMMATURE GRANULOCYTES 1.1 %; IMMATURE GRANULOCYTES ABSOLUTE 0.07 10/3/uL (0.0-0.11); LYMPHOCYTES 6.6 %; LYMPHOCYTES ABSOLUTE 0.44 10/3/uL (0.67-4.30); MANUAL DIFF NO %; MEAN PLATELET VOLUME 8.8 fL (9.2-13.0); MONOCYTES 11.4 %; MONOCYTES ABSOLUTE 0.76 10/3/uL (0.21-1.20); NEUTROPHILS 78.9 %; NEUTROPHILS ABSOLUTE 5.24 10/3/uL (2.02-8.40); PLATELET COUNT 443 10/3/uL (150-400); RBC DISTRIBUTION WIDTH 18.1 % (12.0-16.0); RED CELL COUNT 3.31 10/6/uL (4.7-6.1); WHITE BLOOD CELLS 6.6 10/3/uL (4.5-10.5)
[2016-12-14 06:26] LABS: ALBUMIN 1.6 G/DL (3.5-5.0); BUN (BLOOD UREA NITROGEN) 12 MG/DL (6-23); CALCIUM, SERUM 8.5 MG/DL (8.5-10.4); CHLORIDE, SERUM 102 MMOL/L (96-112); CO2 (CARBON DIOXIDE) 31 MMOL/L (24-34); CREATININE 0.16 MG/DL (0.70-1.30); GFR AFRICAN AMERICAN 198 ML/MIN (>=60); GFR NON AFRICAN AMERICAN 171 ML/MIN (>=60); GLUCOSE, SERUM 148 MG/DL (60-99); PHOSPHORUS, SERUM 2.2 MG/DL (2.5-4.5); POTASSIUM, SERUM 3.8 MMOL/L (3.5-5.3); SODIUM, SERUM 139 MMOL/L (135-148)
[2016-12-15 05:02] LABS: BASOPHILS 0.2 %; BASOPHILS ABSOLUTE 0.01 10/3/uL (0.0-0.16); EOSINOPHILS 1.7 %; EOSINOPHILS ABSOLUTE 0.11 10/3/uL (0.0-0.53); HEMOGLOBIN 7.8 g/dL (13.6-17.8); IMMATURE GRANULOCYTES 1.4 %; IMMATURE GRANULOCYTES ABSOLUTE 0.09 10/3/uL (0.0-0.11); LYMPHOCYTES 7.8 %; MEAN CORPUSCULAR HEMOGLOB 22.6 pg (26.0-34.0); MEAN CORPUSCULAR VOLUME 75.4 fL (80-100); MEAN PLATELET VOLUME 8.6 fL (9.2-13.0); MONOCYTES 8.9 %; MONOCYTES ABSOLUTE 0.57 10/3/uL (0.21-1.20); NEUTROPHILS ABSOLUTE 5.12 10/3/uL (2.02-8.40); PLATELET COUNT 441 10/3/uL (150-400); RBC DISTRIBUTION WIDTH 18.3 % (12.0-16.0); RED CELL COUNT 3.45 10/6/uL (4.7-6.1); WHITE BLOOD CELLS 6.4 10/3/uL (4.5-10.5)
[2016-12-15 05:09] LABS: MANUAL DIFF NO %
[2016-12-15 05:18] LABS: BUN (BLOOD UREA NITROGEN) 14 MG/DL (6-23); CALCIUM, SERUM 8.7 MG/DL (8.5-10.4); CHLORIDE, SERUM 103 MMOL/L (96-112); CO2 (CARBON DIOXIDE) 29 MMOL/L (24-34); CREATININE 0.25 MG/DL (0.70-1.30); GFR AFRICAN AMERICAN 165 ML/MIN (>=60); GFR NON AFRICAN AMERICAN 142 ML/MIN (>=60); POTASSIUM, SERUM 4.2 MMOL/L (3.5-5.3); SODIUM, SERUM 138 MMOL/L (135-148)
[2016-12-15 05:20] LABS: GLUCOSE, SERUM 182 MG/DL (60-99)
[2016-12-17 04:44] LABS: BASOPHILS 0.7 %; BASOPHILS ABSOLUTE 0.03 10/3/uL (0.0-0.16); EOSINOPHILS ABSOLUTE 0.09 10/3/uL (0.0-0.53); HEMATOCRIT 24.9 % (40.0-51.0); HEMOGLOBIN 7.6 g/dL (13.6-17.8); IMMATURE GRANULOCYTES 0.7 %; IMMATURE GRANULOCYTES ABSOLUTE 0.03 10/3/uL (0.0-0.11); LYMPHOCYTES 9.4 %; LYMPHOCYTES ABSOLUTE 0.43 10/3/uL (0.67-4.30); MEAN CORPUS HGB CONC 30.5 g/dL (32.0-36.0); MEAN CORPUSCULAR HEMOGLOB 22.8 pg (26.0-34.0); MEAN CORPUSCULAR VOLUME 74.6 fL (80-100); MONOCYTES 12.9 %; MONOCYTES ABSOLUTE 0.59 10/3/uL (0.21-1.20); NEUTROPHILS 74.3 %; NEUTROPHILS ABSOLUTE 3.41 10/3/uL (2.02-8.40); PLATELET COUNT 414 10/3/uL (150-400); RBC DISTRIBUTION WIDTH 18.7 % (12.0-16.0); RED CELL COUNT 3.34 10/6/uL (4.7-6.1); WHITE BLOOD CELLS 4.6 10/3/uL (4.5-10.5)
[2016-12-17 04:46] LABS: MANUAL DIFF NO %
[2016-12-17 05:10] LABS: ANISOCYTOSIS 1+ (5-10/OIF) (0-5/OIF); HYPOCHROMIA 1+ (3-10/OIF) (0-2/OIF); MICROCYTES 1+ (5-10/OIF) (0-5/OIF); PLATELET ESTIMATE SLT INC (ADEQUATE)
[2016-12-17 05:19] LABS: BUN (BLOOD UREA NITROGEN) 14 MG/DL (6-23); CALCIUM, SERUM 8.8 MG/DL (8.5-10.4); CHLORIDE, SERUM 99 MMOL/L (96-112); CO2 (CARBON DIOXIDE) 30 MMOL/L (24-34); CREATININE 0.18 MG/DL (0.70-1.30); GFR AFRICAN AMERICAN 188 ML/MIN (>=60); GFR NON AFRICAN AMERICAN 162 ML/MIN (>=60); SODIUM, SERUM 137 MMOL/L (135-148)
[2016-12-17 05:23] LABS: GLUCOSE, SERUM 127 MG/DL (60-99)
[2016-12-19] MEDS ORDERED: 8 HOUR650 MG PEG (09:48)
[2016-12-19] MEDS ORDERED: ALBUTEROL0.083 % INH (09:48)
[2016-12-19] MEDS ORDERED: ACETSUP650 PR (09:48)
[2016-12-19] MEDS ORDERED: FESO4 PEG (09:49)
[2016-12-19] MEDS ORDERED: VOLTAREN1 % TOP (09:49)
[2016-12-19] MEDS ORDERED: L40 PEG (09:50)
[2016-12-19] MEDS ORDERED: HEPA50006 SC (09:50)
[2016-12-19] MEDS ORDERED: HUMULIN R1 ML SC (09:52)
[2016-12-19] MEDS ORDERED: MERREM500 MG IV (09:54)
[2016-12-19] MEDS ORDERED: REGL PEG (09:54)
[2016-12-19] MEDS ORDERED: MORPHINE SUL5 MG/ML IV (09:55)
[2016-12-19] MEDS ORDERED: ZOFRAN IV (09:57)
[2016-12-19] MEDS ORDERED: MIRALAX POWDER1 PKT PEG (09:57)
== END 2016-12-18 21:50 | disposition left against medical advice (07) | DRG 500 ==
LOC: ER 18:32 → MIC 20:08 → IMCU 12-17 23:34
PROVIDERS: Emergency Medicine; Family Medicine; Surgery
PROC: 5A1955Z Respiratory Ventilation, Greater than 96 Consecutive Hours (ICD-10-PCS; 2016-12-07)
PROC: 0QB10ZZ Excision of Sacrum, Open Approach (ICD-10-PCS; 2016-12-11)
PROC: 0KBP0ZZ Excision of Left Hip Muscle, Open Approach (ICD-10-PCS; principal; 2016-12-11 20:45)
PROC: 0KBN0ZZ Excision of Right Hip Muscle, Open Approach (ICD-10-PCS; 2016-12-11 20:45)
PROC: 30233N1 Transfusion of Nonautologous Red Blood Cells into Peripheral Vein, Percutaneous Approach (ICD-10-PCS; 2016-12-17)
DX: M87.850 Other osteonecrosis, pelvis (principal); L89.304 Pressure ulcer of unspecified buttock, stage 4; J96.21 Acute and chronic respiratory failure with hypoxia; E43 Unspecified severe protein-calorie malnutrition; Z99.11 Dependence on respirator [ventilator] status; K56.69 Other intestinal obstruction; L89.154 Pressure ulcer of sacral region, stage 4; I50.9 Heart failure, unspecified; G82.20 Paraplegia, unspecified; K86.3 Pseudocyst of pancreas; N39.0 Urinary tract infection, site not specified; T83.518A Infection and inflammatory reaction due to other urinary catheter, initial encounter; G89.4 Chronic pain syndrome; F41.9 Anxiety disorder, unspecified; I25.10 Atherosclerotic heart disease of native coronary artery without angina pectoris; D63.8 Anemia in other chronic diseases classified elsewhere; Z89.512 Acquired absence of left leg below knee; Z86.711 Personal history of pulmonary embolism; Z88.8 Allergy status to other drugs, medicaments and biological substances; Z88.1 Allergy status to other antibiotic agents; Z79.899 Other long term (current) drug therapy; Z93.1 Gastrostomy status; G83.9 Paralytic syndrome, unspecified
CPT/HCPCS: 31720; 36415; 36600; 71010; 74000; 74176; 80048; 80053; 80069; 81001; 82330; 82805; 83690; 83735; 83880; 84134; 84484; 85025; 85610; 85730; 86850; 86900; 86901; 87070; 87077; 87086; 87186; 87205; 87641; 93005; 94002; 94003; 94640; 96374; 99285; A9270-GY; J1940; J1956; J2185; J2250; J2370; J2405; J2543; J2765; J3010

== ENCOUNTER 2016-12-19 09:11 | Inpatient (IN) | payer MEDICARE, BC ==
--- NOTE | ~2016-12-19 | HP ---
History And Physical [place] [id number] [facility] [place]. [address] NAME: LISANDRO ANGUIANO : 44 STATUS : ADM IN [facility]#: [id number] AGE: 76 ADM/REG DATE : 12/19/16 MR#: [id number] REPORT SERV DATE: 12/19/16 DICTATED BY: PURNIMA CHRISTOPHER IV DATE: 12/19/16 REPORT STATUS : Draft TRANSCRIBED BY: MODIndira DATE: 12/19/16 DATE OF ADMISSION: 12/19/2016 REASON FOR ADMISSION: Chronic respiratory failure with new pulmonary infiltrate. HISTORY OF PRESENT ILLNESS: History was obtained from the records and from the son. Mr. Anguiano is a 76-year-old male with a history of quadriplegia with past spinal trauma, recurrent wound, respiratory and urine infections, chronic respiratory failure on the ventilator, COPD, peripheral arterial disease, coronary artery disease, remote pulmonary embolism, pancreatic pseudocyst, who was admitted from [facility] with reported tachypnea and tachycardia with a new infiltrate noted on chest radiograph. The patient is known to our hospital since 07/2016 when he was admitted in transfer with respiratory failure. He underwent extensive evaluation with concern about a new neuromuscular process. He was felt to potentially have Guillain-Winona or myasthenia gravis, however, had negative acetylcholine receptor antibodies and failed to respond to Mestinon. It was felt that he had just worsening of his neuromuscular disease from his previous spinal trauma. He required intubation during the hospitalization, now was trached and is chronically on the mechanical ventilator. He has had multiple hospitalizations for predominantly wounds with multiple wounds on his buttocks and back. He additionally has suprapubic catheter, which gets chronically infected and he has recurrent respiratory infections. The patient had previously resided at [facility], however, just was discharged two days ago to [facility] because of the family's wish not to go back to [facility]. He reportedly developed increasing tachypnea and tachycardia for which he was brought back to the hospital. This demonstrates a new infiltrate. There was discussion about returning the patient to [facility], however, they refused and the family preferred to have hospice evaluation and attempt to take him home with comfort measures. The patient has multiple cultures in the system with resistant organisms to include an Acinetobacter that is carbapenemase producing and an ESBL Proteus and E coli. The patient reportedly carries a diagnosis of obstructive sleep apnea in the past, however, now is trached. PULMONARY HISTORY: Remarkable for no history of childhood asthma. He carries a diagnosis of adult COPD with previous smoking, however, quit 25 years ago. He is chronically on the mechanical ventilator. He is reportedly up to date on his immunizations. PAST MEDICAL HISTORY: 1. Quadriplegia with previous spinal trauma. 2. Recurrent infections are all respiratory, urine, and wound. 3. Chronic respiratory failure on mechanical ventilator. 4. COPD. 5. Obstructive sleep apnea, now status post trached. 6. Peripheral arterial disease with reported ischemic colitis and peripheral arterial disease. 7. Coronary artery disease. 8. Remote pulmonary embolism. History And Physical [address] [address] NAME: LISANDRO ANGUIANO : 44 STATUS : ADM IN [facility]#: [id number] AGE: 76 ADM/REG DATE : 12/19/16 MR#: [id number] REPORT SERV DATE: 12/19/16 DICTATED BY: PURNIMA CHRISTOPHER IV DATE: 12/19/16 REPORT STATUS : Draft TRANSCRIBED BY: SELENE DATE: 12/19/16 9. Pancreatic pseudocyst. 10.Osteomyelitis, status post left below-knee amputation. SURGERIES: 1. Suprapubic catheter placement. 2. Left BKA for osteomyelitis. 3. Peripheral vascular disease, stents. 4. Hernia repair. 5. Colostomy. 6. PEG tube placement. 7. Tracheostomy. ALLERGIES: LISTED ARE POLYSPORIN, ANTIHISTAMINE, AND TAPE. MEDICATIONS: Tylenol p.r.n., DuoNebs every four hours, albuterol p.r.n., Voltaren gel p.r.n., iron 300 mg daily, Lasix 40 mg daily, heparin 5000 units q.8 hours, insulin sliding scale, Merrem 500 mg q.6 hours, Reglan 5 mg q.6 hours, morphine p.r.n., MiraLAX daily, Ultram p.r.n., Ativan p.r.n., Zofran p.r.n. SOCIAL HISTORY: Remarkable for the previous tobacco use as above. There is no reports of alcohol or illicit drug use. He is , has a son. FAMILY HISTORY: Noncontributory and unobtainable at this time. REVIEW OF SYSTEMS: 14 systems reviewed. Pertinent positives as noted above. PHYSICAL EXAMINATION: GENERAL: This is a chronically ill-appearing elderly male, on the mechanical ventilator. VITAL SIGNS: Heart rate is 112, respiratory rate is 17, saturations are 99%, temperature is 98.3, and blood pressure is 155/76. HEENT: Patient is normocephalic, atraumatic. Extraocular movements are intact. Pupils react to light. Sclerae and conjunctivae normal. He has dentures. He is narrowing of the posterior pharyngeal space. He has a tracheostomy in place. There is no palpable lymphadenopathy or thyromegaly. CHEST: The patient has diffuse rhonchi, inspiratory and expiratory with a prolonged expiratory phase. CARDIOVASCULAR: The patient has a tachycardic S1, S2 with no clear murmur or S3. Carotid upstrokes are 1+ with no obvious bruit. There are auditory respiratory sounds. Extremities demonstrate decreased pulses in the right lower extremity. ABDOMEN: PEG tube and colostomy are both noted. Surgical scars are noted. Soft. There are hypoactive bowel sounds. No palpable hepatosplenomegaly or mass. GENITOURINARY: The patient has suprapubic catheter in place. EXTREMITIES: Demonstrate the left BKA and there is 2+ edema in both lower extremities with a healed scar on the right heel. BACK: Demonstrates multiple decubitus ulcers with some packed as documented in the nursing History And Physical [address] [place]. [address] NAME: LISANDRO ANGUIANO : 44 STATUS : ADM IN [facility]#: [id number] AGE: 76 ADM/REG DATE : 12/19/16 MR#: [id number] REPORT SERV DATE: 12/19/16 DICTATED BY: PURNIMA CHRISTOPHER IV DATE: 12/19/16 REPORT STATUS : Draft TRANSCRIBED BY: MODIndira DATE: 12/19/16 notes. NEUROLOGIC: The patient has minimal movement in his upper extremities. No movement in his lower extremities. Chest x-ray demonstrates tracheostomy tube in position. There is prominent cardiac silhouette. There is hazy infiltrate throughout the left hemidiaphragm more prominent than on earlier studies with what appears to be a new left mid to upper lung field pneumonia. CBC: Hemoglobin 9.3, hematocrit 30.5, platelet count was 509,000, and white blood cell count is 18.9. INR is 1.1. The MCV is low at 75. Chemistry: Sodium 139, potassium 4.3, chloride 102, bicarb 31, BUN 22, creatinine 0.31, glucose of 184, alkaline phosphatase is 134, otherwise unremarkable. Troponin is less than 0.3. ASSESSMENT AND PLAN: 1. Respiratory. The patient will be placed on bronchodilator medications to include the Dulera five puffs twice a day with DuoNebs q.4 hours and albuterol p.r.n. Ventilator was changed to CMV, tidal volume of 600 mL, rate of 10, FiO2 of 50% titrated to maintain saturation in the 90% to 94% range. PEEP will be at 5. Chest x-ray will be obtained tomorrow. 2. Infectious Disease. We will continue the Merrem and add vancomycin with the culture results. Add procalcitonin. Chamberlain cultures have been sent. 3. Gastrointestinal. We will place on Vital HN and have Dietary give their opinion. Reglan and Protonix will be continued. 4. Neurologic. Dilaudid and Ativan as needed for comfort. 5. Renal. We will add phos to blood in the lab. Electrolyte replacement protocol has been ordered. 6. Hematologic. Iron studies will be obtained. Will remain on heparin for deep vein thrombosis prophylaxis. 7. Endocrinologic. Insulin sliding scale has been ordered. Thyroid functions will be obtained. Hemoglobin A1c will be obtained, but this is likely a stress response with the elevated levels. 8. Cardiovascular. Blood pressure is currently adequate. 9. Social. I had long discussion with the patient's son. They wish to take their father home with comfort measures. Hospice has been consulted. The patient is a DNR. The patient will be admitted to CCU under the is project manager service. DEYANIRA/MODL Purnima Christopher IV, M.D. / [id number] CC: Armani Jenkins MD
--- NOTE | ~2016-12-19 | CN ---
Consultation Report [facility] [address] [place]. [address] NAME: LISANDRO ANGUIANO : 44 STATUS : ADM IN [facility]#: [id number] AGE: 76 ADM/REG DATE : 12/19/16 MR#: [id number] REPORT SERV DATE: 12/20/16 DICTATED BY: XAVIER HIDALGO DATE: 12/20/16 REPORT STATUS : Draft TRANSCRIBED BY: MODL DATE: 12/20/16 CONSULTATION DATE OF CONSULTATION: 12/20/2016 REASON FOR CONSULTATION: Suprapubic catheter issues. HISTORY OF PRESENT ILLNESS: Mr. Anguiano is a 76-year-old white male with a history of quadriplegia and spinal cord injury, as well as recurrent urinary tract infections, who was admitted for chronic respiratory failure with a new pulmonary infiltrate. At the time of his admission, he was noted to have some leakage around his suprapubic catheter. This was noted to get chronically infected. He has had multiple resistant organisms in his urine in the past including Acinetobacter and ESBL Proteus and E coli. The patient is unable to communicate very well, although his is an excellent historian. Apparently, he has been managing his urine with intermittent catheterization up until approximately 8-12 months ago when he had a suprapubic catheter placed in [facility] by a urologist up there, this has been changed approximately every two to four weeks. The catheter was most recently changed close to a month ago and is probably ready to be changed at this point in time. Creatinine continues to be normal at 0.28. Urine output has been fairly good at 1.5 L over the past 24 hours. I was consulted to assist with the management of this patient. PAST MEDICAL HISTORY: Quadriplegia with previous spinal cord trauma; recurrent respiratory, urine, and wound infections; chronic respiratory failure, on mechanical ventilator; COPD; obstructive sleep apnea; peripheral artery disease with ischemic colitis and coronary artery disease; remote pulmonary embolism; pancreatic pseudocyst; osteomyelitis with left below- knee amputation. PAST SURGICAL HISTORY: Suprapubic catheter placement, left below-knee amputation for osteomyelitis, peripheral vascular disease with stents, hernia repair, colostomy, PEG tube placement, and tracheostomy. ALLERGIES: POLYSPORIN, ANTIHISTAMINE, AND TAPE. HOME MEDICATIONS: Tylenol, DuoNeb, albuterol, Voltaren, iron, Lasix, heparin, insulin, Merrem, Reglan, morphine, MiraLAX, Ultram, Ativan, and Zofran. SOCIAL HISTORY: Remote tobacco. No alcohol or illicit drug use. with a very supportive . FAMILY HISTORY: No significant urologic issues. REVIEW OF SYSTEMS: Thorough 13-point review of systems was performed by me and if not noted to be positive in history of present illness or past medical history, negative. Consultation Report [address] [place]. [address] NAME: LISANDRO ANGUIANO : 44 STATUS : ADM IN PAT#: [id number] AGE: 76 ADM/REG DATE : 12/19/16 MR#: [id number] REPORT SERV DATE: 12/20/16 DICTATED BY: XAVIER HIDALGO DATE: 12/20/16 REPORT STATUS : Draft TRANSCRIBED BY: SELENE DATE: 12/20/16 PHYSICAL EXAMINATION: GENERAL: Chronically ill-appearing gentleman on ventilator via trach. VITAL SIGNS: Temperature 99.4, pulse 110, respiration 27, blood pressure 155/71. HEENT: Normocephalic, atraumatic. Eyes are anicteric. Nares are patent. Oropharynx clear. NECK: Trach. HEART: Tachycardia. ABDOMEN: Colostomy bag and PEG tube noted. He also has suprapubic catheter draining urine with sediment to gravity. The suprapubic site he has very mild chronic skin changes without any purulent drainage or discharge. The catheter appears to be intact and draining well. GENITOURINARY: Edematous penis but glans and meatus are visible. INTEGUMENT: Warm. MUSCULOSKELETAL: Left below-knee amputation. NEUROLOGIC: No focal deficits. PSYCHIATRIC: Pleasant, although not speaking at this time. LABORATORY DATA: Creatinine 0.28, sodium 141, potassium 3.8, white blood cell count 16,900, hematocrit 25.7. Urinalysis; large leukocyte esterase, negative blood, negative nitrite, 124 red blood cells, 0 white blood cells, few yeast. Urine culture is pending. Urine culture from 12/06/2016 grew out Providencia and Pseudomonas. Intervention under my supervision, his 16-Burkinan suprapubic catheter was changed without difficulty. ASSESSMENT: 1. Neurogenic bladder. 2. Recurrent urinary tract infection. 3. Suprapubic catheter issues. PLAN: As noted, we will go ahead and change his suprapubic catheter because it is probably time to do this anyway. He is making good urine despite the sediment in his suprapubic catheter. We will go ahead and continue to monitor him while he is an outpatient and adjust accordingly. My thanks to Dr. Jenkins for asking me to participate in Mr. Anguiano' care. RAC/MODL Xavier Hidalgo M.D. / [id number] CC: Consultation Report [address] [address] NAME: LISANDRO ANGUIANO : 44 STATUS : ADM IN PAT#: [id number] AGE: 76 ADM/REG DATE : 12/19/16 MR#: [id number] REPORT SERV DATE: 12/20/16 DICTATED BY: XAVIER HIDALGO DATE: 12/20/16 REPORT STATUS : Draft TRANSCRIBED BY: SELENE DATE: 12/20/16 Armani Jenkins MD
--- NOTE | ~2016-12-19 | DS ---
Discharge Summary [id number] [place]. [address] NAME: LISANDRO ANGUIANO : 44 STATUS : DIS IN PAT#: [id number] AGE: 76 ADM/REG DATE : 12/19/16 MR#: [id number] REPORT SERV DATE: 01/06/17 DICTATED BY: VIRY CODY DATE: 01/06/17 REPORT STATUS : Draft TRANSCRIBED BY: SELENE DATE: 01/06/17 ADMISSION DATE: 12/19/2016 DISCHARGE DATE: 12/22/2016 REASON FOR ADMISSION: Chronic respiratory failure with new pulmonary infiltrates. BRIEF HISTORY OF PRESENT ILLNESS: Please see Dr. Jama Christopher's detailed dictation from 12/19/2016 for additional details. Mr. 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 He had actually been admitted to our service in 07/2016 with concern for new neuromuscular respiratory weakness with concern for either Guillain-[place] or myasthenic gravis; however, he had had negative acetylcholine receptor antibodies and failed to respond to Mestinon. At the end of the hospitalization, it was felt that he had worsening of neuromuscular disease from his previous spinal trauma and was ultimately discharged to [facility]. He actually had been considered for discharge from the emergency department back to [facility] with treatment for his new pneumonia, however, family refused transfer back to the long-term acute care facility and actually requested admission to the hospital with hospice evaluation with a goal of taking him home on comfort measures with the understanding that he was approaching the end of his life. He was admitted to the CCU bed [address] was seen [address] Dr[address] Christopher and later by Dr. Te Jimenez from Urology for suprapubic catheter change, which was completed in the CCU. He was evaluated by hospice services and after all arrangements were made, he was transferred to the care of Dr. Anamaria Hyde, [facility] for ongoing comfort measures at the hospice care center. 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 Again, please see detailed documentation from Dr. Christopher as well as all consultants and the daily progress notes for additional details of Mr. Anguiano' hospital course. MEDICATIONS AT THE TIME OF DISCHARGE: Included albuterol nebs as needed for shortness of breath, Tylenol as needed for fever, morphine as needed for pain or shortness of breath, Lasix scheduled daily, and Ativan scheduled as well as additional dose on an as-needed basis. He was discharged to the hospice care facility room 416 by [facility] and all of his family's questions were answered prior to hospital discharge. Dr. Anamaria Hyde was the attending at hospice assuming his care. TOMMY/SELENE Viry Cody MD Discharge Summary [address] [address] NAME: LISANDRO ANGUIANO : 44 STATUS : DIS IN PAT#: [id number] AGE: 76 ADM/REG DATE : 12/19/16 MR#: [id number] REPORT SERV DATE: 01/06/17 DICTATED BY: VIRY CODY DATE: 01/06/17 REPORT STATUS : Draft TRANSCRIBED BY: SELENE DATE: 01/06/17 / [id number] CC: Armani Jenkins MD
[~2016-12-19 09:11] MED LIST changes: +ATIVAN IV; +CIP5 PEG; +FENTANYL 12 MCG TOP; +ULTRAM50 PEG; +VOLTAREN1 % TOP
[2016-12-19] MEDS ORDERED: ALBUTEROL0.083 % INH (09:48)
[2016-12-19] MEDS ORDERED: ACETSUP650 PR (09:48)
[2016-12-19] MEDS ORDERED: 8 HOUR650 MG PEG (09:48)
[2016-12-19] MEDS ORDERED: FESO4 PEG (09:49)
[2016-12-19] MEDS ORDERED: VOLTAREN1 % TOP (09:49)
[2016-12-19] MEDS ORDERED: L40 PEG (09:50)
[2016-12-19] MEDS ORDERED: HEPA50006 SC (09:50)
[2016-12-19] MEDS ORDERED: HUMULIN R1 ML SC (09:52)
[2016-12-19 09:53] LABS: INTERNATIONAL NORMAL RATI 1.1 UNITS (-); PROTIME (NOT ORD) 13.8 SEC (12.0-14.5)
[2016-12-19] MEDS ORDERED: MERREM500 MG IV (09:54)
[2016-12-19] MEDS ORDERED: REGL PEG (09:54)
[2016-12-19] MEDS ORDERED: MORPHINE SUL5 MG/ML IV (09:55)
[2016-12-19] MEDS ORDERED: MIRALAX POWDER1 PKT PEG (09:57)
[2016-12-19] MEDS ORDERED: ZOFRAN IV (09:57)
[2016-12-19 10:00] LABS: A/G RATIO 0.4 (0.7-1.9); ALBUMIN 2.1 G/DL (3.5-5.0); ALKALINE PHOSPHATASE 134 U/L (45-117); BUN (BLOOD UREA NITROGEN) 22 MG/DL (6-23); CHEST PAIN PROFILE TAT 0 Hrs 19 Mins; CHLORIDE, SERUM 102 MMOL/L (96-112); CO2 (CARBON DIOXIDE) 31 MMOL/L (24-34); CREATININE 0.31 MG/DL (0.70-1.30); GFR AFRICAN AMERICAN 151 ML/MIN (>=60); GFR NON AFRICAN AMERICAN 130 ML/MIN (>=60); GLUCOSE, SERUM 184 MG/DL (60-99); POTASSIUM, SERUM 4.3 MMOL/L (3.5-5.3); SGOT(AST) 23 U/L (5-40); SGPT(ALT) 44 U/L (5-65); SODIUM, SERUM 139 MMOL/L (135-148); TOTAL BILIRUBIN 0.2 MG/DL (0-1.2); TOTAL PROTEIN 8.1 G/DL (6.0-8.5); TROPONIN I 0.03 NG/ML (<0.05)
[2016-12-19 10:15] LABS: BASOPHILS 0.1 %; BASOPHILS ABSOLUTE 0.02 10/3/uL (0.0-0.16); EOSINOPHILS 0.2 %; EOSINOPHILS ABSOLUTE 0.03 10/3/uL (0.0-0.53); IMMATURE GRANULOCYTES 0.5 %; IMMATURE GRANULOCYTES ABSOLUTE 0.09 10/3/uL (0.0-0.11); LYMPHOCYTES 4.2 %; LYMPHOCYTES ABSOLUTE 0.79 10/3/uL (0.67-4.30); MEAN CORPUS HGB CONC 30.5 g/dL (32.0-36.0); MEAN CORPUSCULAR HEMOGLOB 22.8 pg (26.0-34.0); MEAN CORPUSCULAR VOLUME 74.8 fL (80-100); MEAN PLATELET VOLUME 8.9 fL (9.2-13.0); MONOCYTES 4.9 %; MONOCYTES ABSOLUTE 0.91 10/3/uL (0.21-1.20); NEUTROPHILS 90.1 %; NEUTROPHILS ABSOLUTE 16.82 10/3/uL (2.02-8.40); PLATELET COUNT 509 10/3/uL (150-400); RBC DISTRIBUTION WIDTH 18.7 % (12.0-16.0)
[2016-12-19 10:16] LABS: ER CBC TAT 0 Hrs 42 Mins; HEMATOCRIT 30.5 % (40.0-51.0); HEMOGLOBIN 9.3 g/dL (13.6-17.8); MANUAL DIFF NO %; RED CELL COUNT 4.08 10/6/uL (4.7-6.1); WHITE BLOOD CELLS 18.7 10/3/uL (4.5-10.5)
[2016-12-19 10:17] LABS: ANISOCYTOSIS 1+ (5-10/OIF) (0-5/OIF); PLATELET ESTIMATE SLT INC (ADEQUATE)
[2016-12-19 10:18] LABS: HYPOCHROMIA 1+ (3-10/OIF) (0-2/OIF); MICROCYTES 1+ (5-10/OIF) (0-5/OIF)
[2016-12-19 18:02] LABS: % IRON SAT 6 % (20-50); FERRITIN 95 NG/ML (26-388); IRON BINDING CAPACITY 260 MCG/DL (250-450); IRON, SERUM 16 MCG/DL (35-150); PHOSPHORUS, SERUM 2.5 MG/DL (2.5-4.5)
[2016-12-19 18:17] LABS: ASCORBIC ACID (UR NOT ORDER) 40 (NEG); BILIRUBIN, URINE NEGATIVE (NEG); KETONE, URINE NEGATIVE (NEG); LEUKOCYTE ESTERASE(NOT OR LARGE (NEG); WBC (NOT ORDERED) (RFLEX) 124 (0-5)
[2016-12-19 18:19] LABS: PROCALCITONIN 0.13 ng/mL (<0.5)
[2016-12-20 04:22] LABS: BASOPHILS 0.1 %; BASOPHILS ABSOLUTE 0.02 10/3/uL (0.0-0.16); EOSINOPHILS 0.4 %; EOSINOPHILS ABSOLUTE 0.06 10/3/uL (0.0-0.53); HEMOGLOBIN 7.8 g/dL (13.6-17.8); IMMATURE GRANULOCYTES 0.2 %; IMMATURE GRANULOCYTES ABSOLUTE 0.04 10/3/uL (0.0-0.11); LYMPHOCYTES 2.2 %; LYMPHOCYTES ABSOLUTE 0.38 10/3/uL (0.67-4.30); MEAN CORPUS HGB CONC 30.4 g/dL (32.0-36.0); MEAN CORPUSCULAR HEMOGLOB 22.5 pg (26.0-34.0); MEAN CORPUSCULAR VOLUME 74.3 fL (80-100); MEAN PLATELET VOLUME 9.1 fL (9.2-13.0); MONOCYTES 8.6 %; MONOCYTES ABSOLUTE 1.45 10/3/uL (0.21-1.20); NEUTROPHILS 88.5 %; NEUTROPHILS ABSOLUTE 14.94 10/3/uL (2.02-8.40); PLATELET COUNT 417 10/3/uL (150-400); RBC DISTRIBUTION WIDTH 18.9 % (12.0-16.0); RED CELL COUNT 3.46 10/6/uL (4.7-6.1); WHITE BLOOD CELLS 16.9 10/3/uL (4.5-10.5)
[2016-12-20 04:35] LABS: HEMATOCRIT 25.7 % (40.0-51.0); MANUAL DIFF NO %
[2016-12-20 04:43] LABS: ANISOCYTOSIS 1+ (5-10/OIF) (0-5/OIF); MICROCYTES 1+ (5-10/OIF) (0-5/OIF); PLATELET ESTIMATE SLT INC (ADEQUATE); RBC MORPHOLOGY ABN (NORMAL)
[2016-12-20 04:44] LABS: ALBUMIN 1.8 G/DL (3.5-5.0); BUN (BLOOD UREA NITROGEN) 19 MG/DL (6-23); CALCIUM, SERUM 8.6 MG/DL (8.5-10.4); CHLORIDE, SERUM 105 MMOL/L (96-112); CO2 (CARBON DIOXIDE) 29 MMOL/L (24-34); CREATININE 0.28 MG/DL (0.70-1.30); GFR AFRICAN AMERICAN 157 ML/MIN (>=60); GFR NON AFRICAN AMERICAN 135 ML/MIN (>=60); PHOSPHORUS, SERUM 1.8 MG/DL (2.5-4.5); POTASSIUM, SERUM 3.8 MMOL/L (3.5-5.3); SODIUM, SERUM 141 MMOL/L (135-148)
[2016-12-20 04:46] LABS: GLUCOSE, SERUM 121 MG/DL (60-99)
[2016-12-20 14:36] LABS: HEMATOCRIT 25.1 % (40.0-51.0); HEMOGLOBIN 7.7 g/dL (13.6-17.8)
[2016-12-21 04:00] LABS: BE (BASE EXCESS) 3.4 MEQ/L (0 +/- 2.5); CARBOXYHEMOGLOBIN 0.3 % (0-3); HCO3 (ACTUAL BICARBONATE) 26.8 MEQ/L (23-27); HEMOBLOGIN CONTENT 7.4 G/DL (14-18); INSTRUMENT SERIAL # 35151; METHEMOGLOBIN 0.8 % (0-3); MODE CMV; O2 CONTENT 10.3 VOL% (18-24); PCO2 (CO2 TENSION) 36 MMHG (35-45); PO2 (O2 TENSION) 108 MMHG (79-93); SAMPLE Arterial; TIDAL VOLUME 600 ML
[2016-12-21 04:25] LABS: BASOPHILS 0.2 %; BASOPHILS ABSOLUTE 0.02 10/3/uL (0.0-0.16); EOSINOPHILS 0.2 %; EOSINOPHILS ABSOLUTE 0.02 10/3/uL (0.0-0.53); HEMATOCRIT 23.7 % (40.0-51.0); HEMOGLOBIN 7.3 g/dL (13.6-17.8); IMMATURE GRANULOCYTES 0.3 %; IMMATURE GRANULOCYTES ABSOLUTE 0.03 10/3/uL (0.0-0.11); LYMPHOCYTES 4.9 %; LYMPHOCYTES ABSOLUTE 0.59 10/3/uL (0.67-4.30); MEAN CORPUS HGB CONC 30.8 g/dL (32.0-36.0); MEAN CORPUSCULAR HEMOGLOB 22.6 pg (26.0-34.0); MEAN CORPUSCULAR VOLUME 73.4 fL (80-100); MONOCYTES ABSOLUTE 0.84 10/3/uL (0.21-1.20); NEUTROPHILS 87.4 %; NEUTROPHILS ABSOLUTE 10.46 10/3/uL (2.02-8.40); PLATELET COUNT 377 10/3/uL (150-400); RED CELL COUNT 3.23 10/6/uL (4.7-6.1)
[2016-12-21 04:26] LABS: MANUAL DIFF NO %
[2016-12-21 04:41] LABS: ALBUMIN 1.8 G/DL (3.5-5.0); CALCIUM, SERUM 8.6 MG/DL (8.5-10.4); CHLORIDE, SERUM 105 MMOL/L (96-112); CO2 (CARBON DIOXIDE) 29 MMOL/L (24-34); CREATININE 0.25 MG/DL (0.70-1.30); GFR AFRICAN AMERICAN 165 ML/MIN (>=60); GFR NON AFRICAN AMERICAN 142 ML/MIN (>=60); GLUCOSE, SERUM 137 MG/DL (60-99); POTASSIUM, SERUM 3.5 MMOL/L (3.5-5.3); SODIUM, SERUM 142 MMOL/L (135-148)
[2016-12-21 04:43] LABS: BUN (BLOOD UREA NITROGEN) 13 MG/DL (6-23); PHOSPHORUS, SERUM 2.7 MG/DL (2.5-4.5)
[2016-12-21 05:12] LABS: ANISOCYTOSIS 1+ (5-10/OIF) (0-5/OIF); HYPOCHROMIA 1+ (3-10/OIF) (0-2/OIF); MICROCYTES 1+ (5-10/OIF) (0-5/OIF); PLATELET ESTIMATE ADQ (ADEQUATE); RBC MORPHOLOGY ABN (NORMAL)
[2016-12-21 05:21] LABS: PROCALCITONIN 0.31 ng/mL (<0.5)
[2016-12-22 04:27] LABS: BASOPHILS 0.3 %; BASOPHILS ABSOLUTE 0.02 10/3/uL (0.0-0.16); EOSINOPHILS 0.9 %; EOSINOPHILS ABSOLUTE 0.06 10/3/uL (0.0-0.53); HEMATOCRIT 22.9 % (40.0-51.0); IMMATURE GRANULOCYTES 0.1 %; IMMATURE GRANULOCYTES ABSOLUTE 0.01 10/3/uL (0.0-0.11); LYMPHOCYTES 4.2 %; LYMPHOCYTES ABSOLUTE 0.28 10/3/uL (0.67-4.30); MEAN CORPUS HGB CONC 30.6 g/dL (32.0-36.0); MEAN CORPUSCULAR HEMOGLOB 22.7 pg (26.0-34.0); MEAN CORPUSCULAR VOLUME 74.1 fL (80-100); MONOCYTES 10.8 %; MONOCYTES ABSOLUTE 0.72 10/3/uL (0.21-1.20); NEUTROPHILS 83.7 %; NEUTROPHILS ABSOLUTE 5.59 10/3/uL (2.02-8.40); PLATELET COUNT 355 10/3/uL (150-400); RBC DISTRIBUTION WIDTH 19.1 % (12.0-16.0); RED CELL COUNT 3.09 10/6/uL (4.7-6.1)
[2016-12-22 04:28] LABS: MANUAL DIFF NO %; WHITE BLOOD CELLS 6.7 10/3/uL (4.5-10.5)
[2016-12-22 04:46] LABS: ALBUMIN 1.7 G/DL (3.5-5.0); BUN (BLOOD UREA NITROGEN) 12 MG/DL (6-23); CALCIUM, SERUM 8.6 MG/DL (8.5-10.4); CHLORIDE, SERUM 105 MMOL/L (96-112); CO2 (CARBON DIOXIDE) 28 MMOL/L (24-34); CREATININE 0.23 MG/DL (0.70-1.30); GFR AFRICAN AMERICAN 170 ML/MIN (>=60); GFR NON AFRICAN AMERICAN 147 ML/MIN (>=60); GLUCOSE, SERUM 112 MG/DL (60-99); PHOSPHORUS, SERUM 2.4 MG/DL (2.5-4.5); POTASSIUM, SERUM 3.9 MMOL/L (3.5-5.3); SODIUM, SERUM 141 MMOL/L (135-148)
[2016-12-22 04:58] LABS: ANISOCYTOSIS 1+ (5-10/OIF) (0-5/OIF); HYPOCHROMIA 1+ (3-10/OIF) (0-2/OIF); MICROCYTES 1+ (5-10/OIF) (0-5/OIF); PLATELET ESTIMATE ADQ (ADEQUATE)
== END 2016-12-22 18:30 | disposition hospice, inpatient (51) | DRG 208 ==
LOC: ER 09:11 → CCU 15:04
PROVIDERS: Emergency Medicine; Internal Medicine; Internal Medicine Critical Care Medicine
PROC: 5A1945Z Respiratory Ventilation, 24-96 Consecutive Hours (ICD-10-PCS; principal; 2016-12-19)
PROC: 0T2BX0Z Change Drainage Device in Bladder, External Approach (ICD-10-PCS; 2016-12-19)
DX: J18.9 Pneumonia, unspecified organism (principal); G82.50 Quadriplegia, unspecified; Z99.11 Dependence on respirator [ventilator] status; J96.10 Chronic respiratory failure, unspecified whether with hypoxia or hypercapnia; K55.1 Chronic vascular disorders of intestine; K86.3 Pseudocyst of pancreas; J44.9 Chronic obstructive pulmonary disease, unspecified; I73.9 Peripheral vascular disease, unspecified; I25.10 Atherosclerotic heart disease of native coronary artery without angina pectoris; Z51.5 Encounter for palliative care; N31.9 Neuromuscular dysfunction of bladder, unspecified; L89.90 Pressure ulcer of unspecified site, unspecified stage; G47.33 Obstructive sleep apnea (adult) (pediatric); Z66 Do not resuscitate; Z93.3 Colostomy status; Z93.4 Other artificial openings of gastrointestinal tract status; Z88.8 Allergy status to other drugs, medicaments and biological substances; Z93.0 Tracheostomy status; Z89.512 Acquired absence of left leg below knee; Z98.890 Other specified postprocedural states; Z87.891 Personal history of nicotine dependence; Z86.711 Personal history of pulmonary embolism
CPT/HCPCS: 31720; 36600; 71010; 80048; 80053; 80069; 81001; 82272; 82728; 82805; 82962; 83540; 83550; 83605; 83735; 83880; 84100; 84145; 84484; 85014; 85018; 85025; 85610; 85730; 87040; 87070; 87077; 87086; 87186; 87205; 87641; 93005; 94002; 94003; 94640; 94770; 96365; 96375; 99291; A9270-GY; C9113; J0360; J2185; J2543; J2916; J3370